=== PATIENT | male | born 1970 | race Caucasian/White ===

== ENCOUNTER 2016-05-27 21:45 | Emergency (ER) | payer OTHER | END 2016-05-28 02:48 | disposition home or self-care (01) | LOC: ER1 21:45 | DX: T25.222A Burn of second degree of left foot, initial encounter (principal); T25.221A Burn of second degree of right foot, initial encounter; T31.0 Burns involving less than 10% of body surface; T24.121A Burn of first degree of right knee, initial encounter; X12.XXXA Contact with other hot fluids, initial encounter; Y93.89 Activity, other specified; Y92.009 Unspecified place in unspecified non-institutional (private) residence as the place of occurrence of the external cause | CPT/HCPCS: 90471; 90715; 96374; 99283; J2405 ==

== ENCOUNTER 2020-07-17 01:44 | Emergency (ER) | payer OTHER ==
[~2020-07-17 01:44] MED LIST: CYCLOBENZAPRINE10 MG PO; IBU800 MG PO
[2020-07-17] MEDS ORDERED: IBUPROFEN600 MG PO (03:03)
== END 2020-07-17 03:45 | disposition home or self-care (01) ==
LOC: ER1 01:44
DX: S20.211A Contusion of right front wall of thorax, initial encounter (principal); W19.XXXA Unspecified fall, initial encounter
CPT/HCPCS: 71111; 99283

== ENCOUNTER 2020-08-15 16:50 | Emergency (ER) | payer OTHER ==
[~2020-08-15 16:50] MED LIST changes: +IBUPROFEN600 MG PO
== END 2020-08-15 20:47 | disposition left against medical advice (07) ==
LOC: ER1 16:50
DX: Z53.21 Procedure and treatment not carried out due to patient leaving prior to being seen by health care provider (principal)

== ENCOUNTER 2021-10-05 14:46 | Emergency (ER) | payer OTHER ==
[2021-10-05 16:08] LABS: HEMOGLOBIN 12.2 gm/dl (14.0-17.5); RED BLOOD COUNT 4.04 M/UL (4.20-5.50); WHITE BLOOD COUNT 4.5 K/UL (4.5-11.0)
[2021-10-05 16:32] LABS: BUN/CREATININE RATIO 20 (0-10)
== END 2021-10-05 22:30 | disposition home or self-care (01) ==
LOC: ER1 14:46
PROVIDERS: Student in an Organized Health Care Education/Training Program
DX: R55 Syncope and collapse (principal); R51.9 Headache, unspecified; R42 Dizziness and giddiness; E87.6 Hypokalemia; F12.90 Cannabis use, unspecified, uncomplicated; I10 Essential (primary) hypertension
CPT/HCPCS: 70450; 71045; 80053; 82550; 82553; 84484; 85025; 93005; 99285

== ENCOUNTER 2021-10-07 23:39 | Emergency (ER) | payer OTHER ==
[2021-10-08 05:03] LABS: HEMOGLOBIN 12.4 gm/dl (14.0-17.5); RED BLOOD COUNT 4.1 M/UL (4.20-5.50)
[2021-10-08 05:14] LABS: WHITE BLOOD COUNT 5.7 K/UL (4.5-11.0)
[2021-10-08 05:15] LABS: BUN/CREATININE RATIO 23 (0-10)
== END 2021-10-08 19:15 | disposition short-term general hospital (02) ==
LOC: ER1 23:39
PROVIDERS: Physician Assistant
DX: R41.0 Disorientation, unspecified (principal); R45.851 Suicidal ideations; Z90.89 Acquired absence of other organs; F17.200 Nicotine dependence, unspecified, uncomplicated; Z20.822 Contact with and (suspected) exposure to COVID-19
CPT/HCPCS: 80053; 80307; 81001; 85025; 93005; 99285; G0480; U0002

== ENCOUNTER 2021-10-27 13:57 | Emergency (ER) | payer OTHER ==
[2021-10-27 14:38] LABS: HEMOGLOBIN 12.1 gm/dl (14.0-17.5); RED BLOOD COUNT 3.95 M/UL (4.20-5.50); WHITE BLOOD COUNT 5.3 K/UL (4.5-11.0)
[2021-10-27 14:58] LABS: BUN/CREATININE RATIO 24 (0-10)
[2021-10-27] MEDS ORDERED: IBUPROFEN600 MG PO (15:50)
[2021-10-27] MEDS ORDERED: NORFLEX 100 MG100 MG PO (15:50)
== END 2021-10-27 16:06 | disposition home or self-care (01) ==
LOC: ER1 13:57
PROVIDERS: Physician Assistant Medical
DX: S22.31XA Fracture of one rib, right side, initial encounter for closed fracture (principal); V29.9XXA Motorcycle rider (driver) (passenger) injured in unspecified traffic accident, initial encounter
CPT/HCPCS: 71111; 80053; 82550; 82553; 84484; 85025; 93005; 99284

== ENCOUNTER 2021-10-30 20:39 | Emergency (ER) | payer OTHER ==
[~2021-10-30 20:39] MED LIST changes: +NORFLEX 100 MG100 MG PO
[2021-10-30 20:55] LABS: HEMOGLOBIN 12.7 gm/dl (14.0-17.5); RED BLOOD COUNT 4.18 M/UL (4.20-5.50); WHITE BLOOD COUNT 5.2 K/UL (4.5-11.0)
[2021-10-30 21:13] LABS: BUN/CREATININE RATIO 21 (0-10)
== END 2021-10-31 04:05 | disposition home or self-care (01) ==
LOC: ER1 20:39
PROVIDERS: Physician Assistant
DX: K46.9 Unspecified abdominal hernia without obstruction or gangrene (principal); R40.2410 Glasgow coma scale score 13-15, unspecified time
CPT/HCPCS: 80053; 83605; 85025; 99284; Q9967

== ENCOUNTER 2021-11-12 15:21 | Emergency (ER) | payer OTHER ==
[2021-11-12 16:34] LABS: HEMOGLOBIN 13.7 gm/dl (14.0-17.5); RED BLOOD COUNT 4.54 M/UL (4.20-5.50); WHITE BLOOD COUNT 6.2 K/UL (4.5-11.0)
[2021-11-12 16:59] LABS: BUN/CREATININE RATIO 25 (0-10)
[2021-11-12] MEDS ORDERED: ASPERCREME LID113 GM TP (20:28)
== END 2021-11-12 22:07 | disposition home or self-care (01) ==
LOC: ER1 15:21
PROVIDERS: Emergency Medicine; Physician Assistant Medical
DX: L55.9 Sunburn, unspecified (principal)
CPT/HCPCS: 80053; 80307; 81001; 85025; 96374; 99283; G0480; J1885

== ENCOUNTER 2021-11-30 17:00 | Emergency (ER) | payer OTHER ==
[~2021-11-30 17:00] MED LIST changes: +ASPERCREME LID113 GM TP
[2021-11-30 17:34] LABS: RED BLOOD COUNT 3.98 M/UL (4.20-5.50); WHITE BLOOD COUNT 5.3 K/UL (4.5-11.0)
[2021-11-30 18:09] LABS: BUN/CREATININE RATIO 23 (0-10)
[2021-11-30] MEDS ORDERED: ZOFRAN 4 MG TAB4 MG PO (20:06)
== END 2021-11-30 20:54 | disposition home or self-care (01) ==
LOC: ER1 17:00
PROVIDERS: Family Medicine
DX: R11.0 Nausea (principal); Z90.49 Acquired absence of other specified parts of digestive tract; Z90.89 Acquired absence of other organs
CPT/HCPCS: 71045; 80053; 82550; 82553; 84484; 85025; 93005; 99284